=== PATIENT | female | born 1965 | race Caucasian/White ===

== ENCOUNTER 2020-05-18 10:47 | Emergency (ER) | payer OTHER, SELFPAY ==
[2020-05-18 10:56] VITALS: BP 149/86; PULSE 91; RESP 15; TEMP 37; O2SAT 98; BMI 22.4
--- NOTE | 2020-05-18 11:29 | W.ED.GENADLT ---
HPI - General Adult General: Chief complaint: General Medical Stated complaint: ACHES, CHILLS, DRY COUGH, H/A NAUSEA Time Seen by Provider: 05/18/20 11:06 History of Present Illness: HPI narrative: 55-year-old female who presents emergency room with complaint of generalized myalgias cough for the last couple of days she also had a mild headache she had some abdominal upset no vomiting or diarrhea. She has not had any known contacts no one else in her home is been sick so far. She had a lot of joint pain and myalgias where it initially seemed to begin prior to the cough. Onset (ago): hour(s) Severity: moderate Relieving factors: none Exacerbating factors: none Associated symptoms: Reports cough, fevers/chills, headache(s), malaise, nausea and weakness; Deny chest pain, confusion, diaphoresis, decreased appetite, dyspnea, rash, palpitations, seizures, short of breath, syncope or vomiting Treatments prior to arrival: none Review of Systems Const: Reports: malaise; Denies: diaphoresis ENMT: Denies: throat pain, ear or mastoid pain, nasal discharge or nasal congestion Card: Denies: chest pain, palpitations or syncope Resp: Denies: dyspnea GI: Reports: nausea; Denies: vomiting : Denies: flank pain, difficulty voiding, dysuria, urinary frequency or urinary urgency Skin/Breast: Denies: rash Neuro: Reports: headache(s); Denies: confusion PFS ED PFSH: Social History Smoking and tobacco status: never smoked Physical Exam Const: COMMON NORMALS: no acute distress GENERAL APPEARANCE: cooperative and comfortable ORIENTATION/CONSCIOUSNESS: Yes awake, Yes oriented to person, Yes oriented to place and Yes oriented to time HENMT: COMMON NORMALS: normocephalic, atraumatic and hearing grossly normal bilaterally HEAD & SCALP: normocephalic and atraumatic Eye: COMMON NORMALS: Equal, round and reactive pupils present, EOMs intact bilaterally, conjunctivae normal and no scleral icterus CONJUNCTIVA: Yes conjunctivae normal PUPIL: Yes Equal, round and reactive pupils present Neck/C-Spine: COMMON NORMALS: full ROM, no lymphadenopathy, supple and no JVD Lymph: LYMPHATIC: no lymphadenopathy noted and no lymphedema noted Resp: COMMON NORMALS: normal respiratory effort, No retractions, No use of accessory muscles and clear to auscultation bilaterally AUSCULTATION: clear to auscultation bilaterally Cardio: COMMON NORMALS: no JVD, regular rate, regular rhythm and No murmurs present (Cardio) RATE: regular rate RHYTHM: regular rhythm GI: COMMON NORMALS: Soft to palpation and No hepatosplenomegaly present AUSCULTATION: Yes normoactive bowel sounds PALPATION: Yes Soft to palpation, No Tenderness to palpation present (GI), No Guarding due to palpation present (GI) and Yes No hepatosplenomegaly present Extremity: COMMON NORMALS: normal to inspection, capillary refill normal, no clubbing, cyanosis or edema, no calf tenderness and no pedal edema Neuro: SENSORIUM/ORIENTATION: Yes oriented to person, Yes oriented to place and Yes oriented to time Skin: COMMON NORMALS: no rashes or lesions noted GENERAL SKIN EXAM: no rashes or lesions noted Course Vital Signs: Vital signs: Vital Signs Temperature 98.6 F 05/18/20 10:56 Pulse Rate 91 05/18/20 10:56 Respiratory Rate 15 05/18/20 10:56 Blood Pressure 149/86 05/18/20 10:56 Pulse Oximetry 98 05/18/20 10:56 MDM - General Adult MDM Narrative: Medical decision making narrative: Encouraged to maintain self quarantine. Also encouraged to follow-up with employee health as soon as she is able. Discharge Plan Discharge Patient Disposition: Home Clinical Impression: Suspected 2019-nCoV infection Condition: Stable Prescriptions: No Action Tylenol 325 mg Tablet 325 - 650 mg PO QID PRN (Reason: PAIN/FEVER) RF: 0 ibuprofen 200 mg Capsule 200 mg PO Q6H PRN (Reason: PAIN/FEVER) RF: 0 Nexium 40 mg Capsule,Delayed Release(Dr/Ec) 40 mg PO DAILY RF: 0 Discharge Orders: Discharge Order (Routine); Ordered 05/18/20 Ordered By: Aidan Ho Activity Restrictions/Additional Instructions: Your swab for COVID-19. Please maintain self quarantine until the results are back. Please contact employee health on Wednesday to advise them of your type and onset of symptoms and the testing that was done. Coding Level of Care Code ED Fashion Consultant Selling for Sandro Roca
[2020-05-18 11:36] VITALS: BP 118/70; PULSE 70; RESP 16; O2SAT 98
[2020-05-21 08:06] LABS: Coronavirus Lab Test PTC Positive
--- NOTE | 2020-05-21 12:44 | PC.NURSE ---
Patient called at this time and notified of COVID positive results.
== END 2020-05-18 11:37 | disposition home or self-care (01) ==
PROVIDERS: Emergency Provider Family Medicine
DX: U07.1 COVID-19 (principal)
CPT/HCPCS: 12345; 87635; 99281; 99282

== ENCOUNTER 2020-06-06 10:03 | Outpatient (CLI) | payer OTHER, SELFPAY ==
--- NOTE | 2020-06-06 10:10 | XR_ITS ---
WS: [id number] PROCEDURE: XR chest 2V* [id number] CLINICAL INFORMATION: cough/shortness of breath COMPARISON: June 09, 2010 FINDINGS: Heart: Normal cardiac silhouette. Lungs: Lungs are clear. No consolidation or pleural fluid. Mild chronic emphysematous changes. Bones: Normal visualized bony structures. Cholecystectomy clips. XR/XR chest 2V* [id number] IMPRESSION: Mild chronic emphysematous changes. No acute pulmonary infiltrates.
== END 2020-06-06 10:04 | disposition home or self-care (01) ==
LOC: RADWPI 10:08
PROVIDERS: PCP Nurse Practitioner Family; Visit Provider Family Medicine
DX: R05 Cough (principal); R06.02 Shortness of breath
CPT/HCPCS: 71046; 85025

== ENCOUNTER 2021-06-02 13:40 | Outpatient (CLI) | payer OTHER, SELFPAY ==
--- NOTE | 2021-06-02 13:49 | US_ITS ---
WS: [id number] DIAGNOSTIC BILATERAL DIGITAL MAMMOGRAM WITH CAD LEFT breast ultrasound, limited HISTORY: N64.4 - Mastodynia COMPARISON: 07/04/2014 TECHNIQUE: Bilateral craniocaudad, mediolateral oblique, and mediolateral views are submitted. Spot c ompression LEFT MLO Computer aided detection utilized. Breast composition: The breasts are heterogeneously dense, which may obscure small masses. No masses or distortion. No abnormality in the upper-outer quadrant of the LEFT breast in the area of pain. LEFT breast ultrasound, limited. Ultrasound is directed to the upper outer quadrant of the LEFT breast in the area of pain. No mass or soft tissue nodules are identified. There is a benign lymph node near the axillary tail. US/US breast LT limited* [id number] IMPRESSION: BI-RADS: 2-Benign FOLLOW UP: 1 Year Follow-up
--- NOTE | 2021-06-02 14:00 | MM_ITS ---
WS: [id number] DIAGNOSTIC BILATERAL DIGITAL MAMMOGRAM WITH CAD LEFT breast ultrasound, limited HISTORY: N64.4 - Mastodynia COMPARISON: 07/04/2014 TECHNIQUE: Bilateral craniocaudad, mediolateral oblique, and mediolateral views are submitted. Spot c ompression LEFT MLO Computer aided detection utilized. Breast composition: The breasts are heterogeneously dense, which may obscure small masses. No masses or distortion. No abnormality in the upper-outer quadrant of the LEFT breast in the area of pain. LEFT breast ultrasound, limited. Ultrasound is directed to the upper outer quadrant of the LEFT breast in the area of pain. No mass or soft tissue nodules are identified. There is a benign lymph node near the axillary tail. MM/[place] [id number] IMPRESSION: BI-RADS: 2-Benign FOLLOW UP: 1 Year Follow-up
== END 2021-06-02 13:41 | disposition home or self-care (01) ==
LOC: RADSHAW 13:44
PROVIDERS: Visit Provider Nurse Practitioner Women's Health
DX: N64.4 Mastodynia (principal)
CPT/HCPCS: 76642; 77066

== ENCOUNTER → 2021-06-17 14:30 | Outpatient (BNVA) | payer OTHER, SELFPAY | PROVIDERS: Visit Provider Obstetrics & Gynecology | DX: R32 Unspecified urinary incontinence (principal) | CPT/HCPCS: 87086 ==

== ENCOUNTER → 2021-09-12 11:31 | Outpatient (BNVA) | payer OTHER, SELFPAY | PROVIDERS: Visit Provider Obstetrics & Gynecology | DX: N81.3 Complete uterovaginal prolapse (principal) | CPT/HCPCS: 87635 ==

== ENCOUNTER 2021-09-17 13:29 | Observation (INO) | payer OTHER, SELFPAY ==
[2021-09-15 10:17] VITALS: BMI 22.4
[2021-09-15 10:57] LABS: OR HCG Qualitative Urine Negative (Negative)
--- NOTE | 2021-09-15 10:58 | P.ANESASSM_ITS ---
Pre-Anesthetic Assessment Pre-Anesthetic Assessment: Height/Weight: Height 1.65 m Weight 61.235 kg Proposed Procedure: Operation Date: 09/17/21 07:00 Proposed Procedures p Total Vaginal Hysterectomy 82011 22584 [id number] 90054 N81.3(Not Applicable) - Tito Walker MD s Salpingo-Oophorectomy (Vaginal)(Right) - Tito Walker MD s Anterior Repair(Not Applicable) - MD urvashi Browning Posterior Repair(Not Applicable) - Tito Walker MD s Sling(Not Applicable) - Tito Walker MD s Sacrospinous Ligament Suspension(Not Applicable) - Tito Walker MD Was Beta Lena taken within 24 hours: N/A Was Clonidine taken within 24 hours: N/A Social: Social History: No alcohol and No tobacco Exam: Pre-Anes Outpt Exam: alert, oriented x 3, clear to auscultation bilaterally and regular rate & rhythm Airway: Submandibular: WNL Cervical ROM: WNL MP: 2 Pulmonary: Pulmonary: SOB (Since COVID) CV/HEM: CV/HEM: None reported : Comments: Uterine Prolapse Hepatic: Hepatic: None reported GI: GI: GERD (Controlled with OTC meds) Metabolic: Metabolic: None reported Musc/skel: Musc/skel: None reported Neuropsych: Neuropsych: None reported Anesthetic Plan: ASA status: 2 Anesthesia: General PFS Anesthesia PFSH: Medical History No pertinent past medical history neghx: htn,dm,thyroid,dvt/pe PCP: None Third degree uterine prolapse Surgical History Hx laparoscopic cholecystectomy (~2018) Hx of appendectomy (~1987) Hx of unilateral salpingectomy (~1987) L side -- with oophorectomy; due to endometriosis. Performed in [place] Family History Brother Diabetes Father Hypertension Sister Hypercholesteremia x2 Thyroid disease x2 Denies family history of Colon cancer Ovarian cancer Heart disease Breast cancer Uterine cancer Stroke Data Anesthesia Other Labs: Laboratory Results - last 48 hr 09/15/21 10:34 Urine HCG, Qual Negative Cardiac Studies: No Data to Display
[2021-09-15 12:37] LABS: Basophils % 0.6 %; Eosinophils # 0.1 10^3/uL (0.0-0.8); Eosinophils % 1.6 %; Hematocrit 48.9 % (37.0-47.0); Hemoglobin 15.3 g/dL (11.5-15.3); Lymphocytes # 1.8 10^3/uL (0.8-4.8); Lymphocytes % 28.4 %; Mean Corpuscular HGB Conc 31.3 g/dL (30.0-36.0); Mean Corpuscular Hemoglobin 28.2 pg (28.0-34.0); Mean Corpuscular Volume 90.2 fl (81-99); Mean Platelet Volume 12.3 fL (7.4-10.4); Monocytes # 0.3 10^3/uL (0.2-0.9); Monocytes % 4.8 %; Neutrophils # 4.14 10^3/uL (1.8-7.7); Neutrophils % 64.1 %; Nucleated Red Blood Cells % 0 %; Platelet Count 217 10^3/cmm (130-400); Red Blood Count 5.42 10^6/uL (4.1-5.3); Red Cell Distribution Width 13.2 % (12.1-15.1); White Blood Count 6.5 10^3/uL (4.0-10.0)
[2021-09-15 12:52] LABS: Alanine Aminotransferase 24 U/L (0-33); Albumin Level 4.8 g/dL (3.5-5.2); Alkaline Phosphatase 129 IU/L (35-105); Aspartate Amino Transferase 20 U/L (0-32); Blood Urea Nitrogen 13 mg/dL (6-20); Calcium 9.6 mg/dL (8.5-10.5); Carbon Dioxide 25 mmol/L (22-29); Chloride 100 mmol/L (98-107); Creatinine Clr Calc Pharmacy 115.0239; Globulin 2.7 g/dL (1.3-4.6); Glomerular Filtration Rate 127.2 mL/min (90-130); Glucose 76 mg/dL (65-115); Osmolality Calculated 287 mOsm/kg (285-295); Sodium 139 mmol/L (136-145); Total Bilirubin 0.4 mg/dL (0.15-1.2); Total Protein 7.5 g/dL (6.6-8.7)
[2021-09-15 19:18] LABS: Add Urine Microscopic? NO; Charge for UA Resulting for Rev
[2021-09-15 19:28] LABS: Urine Appearance Clear (CLEAR); Urine Color Yellow (Yellow); pH Urine 5 (5-7)
[2021-09-15 19:29] LABS: Bilirubin Urine Neg (Negative); Blood Urine Neg (Negative); Glucose Urine UA Norm (Normal); Ketones Urine Negative (Negative); Leukocyte Esterase Urine Negative (Negative); Nitrate Urine Negative (Negative); Protein Urine Neg (Negative); Specific Gravity, Urine 1.015 (1.005-1.030); Urobilinogen Urine Norm (Negative)
[2021-09-17] VITALS (28 sets, daily range): BP systolic 97–159; BP diastolic 61–85; PULSE 60–101; RESP 12–23; TEMP 36.2–37.1; O2SAT 92–100
[2021-09-17] MEDS: scopolamine 1.5 Patch 1 PATCH TRANSDERMA (06:15)
[2021-09-17] MEDS: sodium chloride 0.9% 500 ML IV (06:17)
--- NOTE | 2021-09-17 06:28 | P.ANESUD_ITS ---
Pre-Anesthetic Update Pre-Anesthetic Assessment: Date of Surgery/Procedure: 09/17/21 Preop Terrie gnosis: Third-degree uterine prolapse Proposed Procedure: Operation Date: 09/17/21 07:00 Proposed Procedures p Total Vaginal Hysterectomy 03370 44991 [id number] N81.3(Not Applicable) - Tito Walker MD s Salpingo-Oophorectomy (Vaginal)(Right) - MD urvashi Browning Anterior Repair(Not Applicable) - MD urvashi Browning Posterior Repair(Not Applicable) - MD urvashi Browning Sling(Not Applicable) - MD urvashi Browning Sacrospinous Ligament Suspension(Not Applicable) - Tito Walker MD Any changes to Pre-Anesthetic Assessment?: No Last Intake: Intake Last Liquid Date 09/16/21 Last Liquid Time 23:40 Last Solid Date 09/16/21 Last Solid Time 20:00 Labs Last 48hrs: Laboratory Results - last 48 hr 09/15/21 09/15/21 09/15/21 10:34 10:34 10:52 WBC 6.5 RBC 5.42 H Hgb 15.3 Hct 48.9 H MCV 90.2 MCH 28.2 MCHC 31.3 RDW 13.2 Plt Count 217 MPV 12.3 H Neut % (Auto) 64.1 Lymph % (Auto) 28.4 [place] % (Auto) 4.8 Eos % (Auto) 1.6 Baso % (Auto) 0.6 Neut # (Auto) 4.14 Lymph # (Auto) 1.8 [place] # (Auto) 0.3 Eos # (Auto) 0.1 Baso # (Auto) 0.0 Nucleated RBC % (a uto) 0 Nucleated RBCs # 0.0 Sodium Potassium Chloride Carbon Dioxide Anion Gap BUN Creatinine GFR Calculation Glucose Calculated Osmolal ity Calcium Total Bilirubin AST ALT Alkaline Phosphata se Total Protein Albumin Globulin Urine Color Yellow Urine Appearance Clear Urine pH 5 Ur Specific Gravit y 1.015 Urine Protein Neg Urine Glucose (UA) Norm Urine Ketones Negative Urine Blood Neg Urine Nitrate Negative Urine Bilirubin Neg Urine Urobilinogen Norm Ur Leukocyte Candie ase Negative Urine HCG, Qual Negative Blood Type Rho(D) Type Antibody Screen 09/15/21 09/15/21 10:52 10:52 WBC RBC Hgb Hct MCV MCH MCHC RDW Plt Count MPV Neut % (Auto) Lymph % (Auto) [place] % (Auto) Eos % (Auto) Baso % (Auto) Neut # (Auto) Lymph # (Auto) [place] # (Auto) Eos # (Auto) Baso # (Auto) Nucleated RBC % (a uto) Nucleated RBCs # Sodium 139 Potassium 4.0 Chloride 100 Carbon Dioxide 25 Anion Gap 18.0 BUN 13 Creatinine 0.5 GFR Calculation 127.2 Glucose 76 Calculated Osmolal ity 287 Calcium 9.6 Total Bilirubin 0.4 AST 20 ALT 24 Alkaline Phosphata se 129 H Total Protein 7.5 Albumin 4.8 Globulin 2.7 Urine Color Urine Appearance Urine pH Ur Specific Gravit y Urine Protein Urine Glucose (UA) Urine Ketones Urine Blood Urine Nitrate Urine Bilirubin Urine Urobilinogen Ur Leukocyte Candie ase Urine HCG, Qual Blood Type O Positive Rho(D) Type Positive Antibody Screen Negative Vitals: Temperature 97.9 F 09/17/21 06:07 Temperature Source Temporal Artery S can 09/17/21 06:07 Pulse Rate 86 09/17/21 06:07 Respiratory Rate 16 09/17/21 06:07 Blood Pressure 132/85 09/17/21 06:07 Blood Pressure Vanessa n 100 09/17/21 06:07 Pulse Oximetry 98 09/17/21 06:07 Oxygen Delivery Me thod 09/17/21 06:07 Exam: Pre-Anes Outpt Exam: alert, oriented x 3, clear to auscultation bilaterally and regular rate & rhythm Cardiac Studies: No Data to Display
[2021-09-17] MEDS: sodium chloride 0.9% 1,000 ML 30 ML IV (06:51)
--- NOTE | 2021-09-17 06:57 | W.PM.OPSUD ---
Surgery/Procedure H&P Update DATE OF PROCEDURE: September 17, 2021 DATE H&P PERFORMED: 09/12/20 H&P UPDATE INFORMATION: I have reviewed H&P completed within last 30 days, I have examined patient prior to procedure and No changes to prior documentation PREOP DIAGNOSIS: Third-degree uterine prolapse PLANNED PROCEDURE: Operation Date: 09/17/21 07:00 Proposed Procedures p Total Vaginal Hysterectomy 77970 74545 [id number] N81.3(Not Applicable) - Tito Walker MD s Salpingo-Oophorectomy (Vaginal)(Right) - Tito Walker MD s Anterior Repair(Not Applicable) - MD urvashi Browning Posterior Repair(Not Applicable) - Tito Walker MD s Sling(Not Applicable) - Tito Walker MD s Sacrospinous Ligament Suspension(Not Applicable) - Tito Walker MD
[2021-09-17] MEDS: ceFOXitin 2,000 MG in sodium chloride 0.9% (plus) 50 ML 100 MG IV (07:00)
[2021-09-17] MEDS: estrogens Conjugated Cream 30 gm 1 APPLIC VAGINAL (09:08)
--- NOTE | 2021-09-17 09:51 | P.OP_ITS ---
Operative Report Date of procedure: September 17, 2021 Pre-op Diagnosis: Third-degree uterine prolapse Post-op diagnosis: same Post-op Diagnosis: uterine fibroid Post-op Findings: Uterine fibroid Procedure Done: Total vaginal hysterectomy with right salpingo-oophorectomy. Anterior colporrhaphy augmented with allograft. Single incision mid urethral sling. Posterior colporrhaphy. Sacrospinous fixation. Cystoscopy. Implants: Coloplast artist sling. Anchorsure suspension. Specimens removed/disposition: Uterus Right fallopian tube and ovary. Pathology: Uterus with the right fallopian tube and ovary Surgeon: Tito Walker MD Anesthesia: General Estimated blood loss (mL): 300 IV fluids (mL): 1,000 Urine output (mL): 200 Complications: None Condition: stable Disposition: PACU Procedure: After informed consent, the patient was taken to the operating room where general anesthesia was administered. She was placed in the dorsal lithotomy position and prepped and draped in sterile fashion. Pre-Procedure Time-Out verifying the correct patient identity, correct procedure verified with consent, correct site and side, correct patient position, availability of correct implants and any special equipment or requirements was performed and acknowledge by the OR team. A vaginal Bookwalter retractor was placed and used to visualize the cervix. The cervix was grasped across the anterior lip with a single-toothed tenaculum and circumferentially infiltrated with 1% Xylocaine with epinephrine at this time. The cervix was circumferentially excised with the scalpel. The vaginal mucosa was dissected superiorly with sharp dissection. The anterior peritoneal reflection was identified, and it was entered with Metzenbaum scissors. A posterior colpotomy was made through the cul-de-sac space. The posterior peritoneum was identified in similar fashion and Metzenbaum scissors were used to enter the cul-de-sac. At this time, a lap sponge was place in the culdesac and, the left and right uterosacral ligaments were isolated and ligated with 0 Vicryl. The Enseal device was then used in a serial fashion up through the cardinal ligaments bilaterally. Finally, the uterine arteries were cross-clamped, cut, and ligated with the Enseal device. Enseal device was then used up through the broad ligaments sup eriorly and finally the uterus was rotated posteriorly. The left and right tubes were then cross-clamped and ligated with Enseal device. The uterus was excised and submitted for pathologic evaluation. No other abnormalities were noted in the pelvic cavity. Tag sutures had been left on the remnants of the uterosacral ligaments. A Driss forces was used grasp the right ovary and fallopian tube, with the Enseal device the right infudibulopelvic ligament was camped sealed and cut to excise the the right ovary and fallopian tube with out complications. The right uterosacral ligament tag was placed under traction to identify the remnants of the right uterosacral ligament. An #0 vicryl suture was placed to the proximal right uterosacral ligament and sutured to the anterior and posterior pelvic fascia beneath the vaginal cuff on the right side. Identical process was performed on the left, although some difficulty was encountered in identifying and actually suturing through the attenuated left uterosacral ligament. Both these sutures were tied to elevate the vaginal cuff. The remaining vaginal cuff mucosa and anterior and posterior fascia were then closed. At this time, instruments were removed from the patient's abdominopelvic cavity. Vaginal cuff closure and peritoneum were incorporated into one layer with 0 Vicryl suture in a continuous running interlocking fashion. Hemostasis was noted to be achieved. The anterior vaginal mucosa beneath the midurethra was infiltrated with 0.5% Marcaine with epinephrine. A vertical midline incision was made beneath the midurethra, nearly 1.5 cm length. Careful submucosal dissection was performed bilaterally up to the interior portion of the inferior pubic ramus. The insertion of adductor longus tendon on the patient?s pubic ramus was identified as reference land katharine. Palpated the notch along the internal edge of ischiopubic ramus where the adductor longus tendon and the inferior pubic ramus meet. The needle of the SIS inserted aiming at the location of this notch. One of the integrated self-fixating tips place onto the needle by sliding it over the end of the needle. The needle/sling assembly was inserted toward the loca tion of identified reference notch making sure that the flat of the handle is perpendicular to the desired path. The needle was tracked along the posterior surface of the ischiopubic ramus until the midline katharine on the mesh is approximately at the midline position under the urethra. The needle was removed and the same was repeated on the contralateral side until the appropriate sling tension under the urethra was achieved ensuring that the mesh lays flat. The needle was removed and vaginal incision was closed in a running interlocking fashion with 2-0 Vicryl. Then an anterior colporrhaphy was performed. The vaginal mucosa was then injected in the midline with normal saline. The vaginal mucosa was then injected in the midline with normal saline. The vaginal mucosa was scored in the midline with the Bovie approximately 1 cm medial to the urethral meatus to 1 cm distal to the vaginal cuff. This vaginal mucosa was then undermined and then incised in the midline with the Metzenbaum scissors. The lateral aspects of the vaginal mucosa were then grasped with the Allis clamps and the vaginal mucosa was then dissected off the underlying fascia with the Metzenbaum scissors. Again, there was noted to be quite a bit of oozing at the incision, which was controlled with cautery. After adequate dissection was performed, bilaterally. The Cloplast allograft was modified at time of application to fit spacea, 3 x 3 cm piece . Coloplast allograft placed in front of cystocele ready to be implanted with the Basement Membrane facing the vagina mucosa. Suture is placed at distal end of graft and placed towards vaginal cuff. Final suture is placed on proximal portion of the graft to complete the placement overlying the bladder. Then Interrupted vertical mattress sutures of 0 Vicryl were used to elevate the cystocele superiorly. The excessive vaginal mucosa was then trimmed with the Metzenbaum scissors and the vaginal mucosa was then reapproximated in the running interlocking fashion with 2-0 Vicryl. The posterior vaginal mucosa is opened in the routine fashion as in a Posterior Repair. A finger is inserted through the incision in the posterior vaginal mucosa, dissecting out the rectovaginal space (RVS). The right rectal pillar (RRP) is identified. The rectal pillar can be bluntly perforated either with the finger and with the tip of a long Najma clamp. A thing mailable retractor is used for exposing the rectovaginal space in order to enter the pararectal space with retraction of the cardinal ligament, vagina, and rectum. Displacing the rectum to the left and the cardinal ligament and ureter anteriorly. A sponge dissector is used to bluntly dissect the sacrospinous ligament removing areolar tissue. The ischial spine was palpated directly, and a area approximately 2 cm medial to the spine was selected for insertion of the Anchorsure transvaginal sacrospinous fixation system. One end of the suture of Anchoresure system inserted through the sacrospinous ligament is placed through the muscular layer of the vagina. In a similar manner, the second suture is placed. The opposite end of the suture in the sacrospinous ligament is left free and held on a small hemostat. Then traction on this suture will draw the vaginal vault directly to the ligament, where a square knot affixes it to the sacrospinous ligament. After the eriberto stich is tied the second safety stich is tied. Then the colporrhaphy/vaginal repair is carried out in routine fashion. Then posterior repair was performed next. An incision was made across the introitus. Metzenbaum scissors were used to tunnel beneath posterior vaginal mucosa until the apex of the rectocele bulge was reached. At this point, the rectum was from the posterior vaginal mucosa using sharp and blunt dissection, and the rectal bulge imbricated in the midline with interrupted sutures of 2-0 vicryl suture. Levator ani muscles on either side were approximated in the midline with interrupted 0 Vicryl sutures. Excess posterior vaginal mucosa was excised, and the vaginal episiotomy was repaired by approximating the posterior vaginal mucosa with a suture of Vicryl #3-0. IV Indigo carmine was given. Then the Nolan catheter was removed and cystoscope was inserted. Complete evaluation of the bladder mucosa was performed noting no lacerations, dimpling, tears, bleeding of the mucosa or muscular layers. Both ureteral orifices were identified. Prompt excretion of blue urine from both ureteral orifices was noted. Cystoscope was withdrawn. Nolan catheter was then placed yielding clear garo urine. A vaginal packing with Premarin cream was placed to provide support during the healing process. The patient tolerated the procedure well and was taken to the recovery room in a stable condition. Sponge and needle c ounts were correct x3. This documentation was created by [employer] joiners supervisor software (known for inherent joiners supervisor error). Every effort was made to assure accuracy of joiners supervisor. Any obvious errors or omissions should be clarified with the author of the document.
--- NOTE | 2021-09-17 10:02 | P.PCN_ITS ---
PACU note PACU note: VSS, Good respiratory effort, report to PAYROLL MACHINE OPERATOR Post-Anesthesia Exam: awake
--- NOTE | 2021-09-17 10:02 | PM.PACU ---
PACU note PACU note: VSS, Good respiratory effort, report to MARINE FITTER Post-Anesthesia Exam: awake
[2021-09-17] MEDS: fentaNYL 50 mcg/mL INJ 2mL IVP ×2 (10:35→11:28)
[2021-09-17] MEDS: HYDROmorphone 1 mg/mL INJ 1 mL 0.5 MG IVP (12:45)
[2021-09-17] MEDS: ondansetron 2 mg/ML SDV 2 mL 4 MG IVP (13:30)
--- NOTE | 2021-09-17 13:54 | ANE.PACU2 ---
Inpatient post-anesthesia follow up: Airway intact: Yes Vital signs: Temperature 97.2 F Pulse Rate 68 Respiratory Rate 18 Blood Pressure 103/65 Pulse Oximetry 98 Oxygen Delivery Me thod Room Air Oxygen Flow Rate 6 Fraction of Inspir ed Oxygen Hydration adequate: Yes Nausea and vomiting: No Pain level: 2 Mental status: Baseline
[2021-09-17] MEDS: dextrose 5%-lactated ringers 1,000 ML 125 ML IV (16:26)
[2021-09-17] MEDS: ketorolac 30 mg/mL INJ IVP ×2 (16:26→21:33)
[2021-09-17] MEDS: HYDROcodone-acetaminophen 5-325 mg Tablet PO ×2 (17:52→23:59)
[2021-09-17] MEDS: docusate sodium 100 mg Capsule PO (17:52)
[2021-09-17] MEDS: acetaminophen 325 mg Tablet 650 MG PO (20:14)
[2021-09-18] VITALS: BP 114/59; PULSE 79; RESP 18; TEMP 36.6; O2SAT 100
[2021-09-18 04:00] VITALS: BP 92/55; PULSE 87; RESP 16; TEMP 36.7; O2SAT 98
[2021-09-18] MEDS: ketorolac 30 mg/mL INJ IVP (04:52)
[2021-09-18 07:41] VITALS: BP 99/60; PULSE 71; RESP 18; TEMP 37.1; O2SAT 98
[2021-09-18] MEDS: docusate sodium 100 mg Capsule PO (09:09)
[2021-09-18] MEDS: dextrose 5%-lactated ringers 1,000 ML 125 ML IV ×2 (09:09)
[2021-09-18 09:28] LABS: Hematocrit 34.8 % (37.0-47.0); Hemoglobin 10.6 g/dL (11.5-15.3); Mean Corpuscular HGB Conc 30.5 g/dL (30.0-36.0); Mean Corpuscular Volume 91.8 fl (81-99); Mean Platelet Volume 12.2 fL (7.4-10.4); Platelet Count 158 10^3/cmm (130-400); Red Blood Count 3.79 10^6/uL (4.1-5.3); Red Cell Distribution Width 13.6 % (12.1-15.1); White Blood Count 10.6 10^3/uL (4.0-10.0)
--- NOTE | 2021-09-18 10:18 | PC.CHAP ---
Pastoral Care Encounter/Spiritual Assessment Type of Contact [] Declined avionics electronics technician visit [] Patient/Family/Request visit [] Outpatient visit [] Follow-up visit [] Physician referral [] Code/Alert [] Routine visit [] Staff referral [] Actively dying [] Patient sleeping [] Family support [] [] Out of room [] Palliative care [] [] Receiving care in room [] Pre-surgical visit [] Trauma [] Long length of stay [] ICU visit [x] Other: Isolation Relational/Emotional Strength [] Patient feels connected with others/family/visitors/staff [] Distress [] Loneliness/isolation [] Abandonment Spirituality of Patient [] Person of Marianne [] Attends Sabianism of their Marianne [] Believes in Prayer [] Reads Bible or Tenriism materials [] There are Spiritual issues to be addressed Igniter Assembler Interventions [] Prayer [] Active listening [] Non-anxious presence [] Spiritual/emotional support [] Crisis/trauma care [] Spiritual counseling [] Bereavement support [] Provided bereavement packet [] Provided Bible/devotional materials [] Provided toy/stuffed animal, coloring book to patient or family member [] Provided Communion [] Anointing/[place] [] Salvation [] Completed spiritual assessment [] Other: Impact on Illness or Injury [] Angry [] Fearful [] Anxious [] Often cries [] Exhaustion [] Unable to work [] Unable to attend voodoo [] Unable to walk/stand [] Unable to read [] Unable to drive [] Unable to eat/drink [] Unable to sleep [] Unable to be with family [] Patient intubated [] Other: Summary Isolation Time spent with patient 5 mins
--- NOTE | 2021-09-18 10:23 | P.DS_ITS ---
Discharge Providers EQUIPMENT MECHANIC SPECIALIST Date of Admission: 09/17/21 13:29 Date of Discharge: 09/18/21 Attending Provider at Admission: Tito Walker MD Attending Provider at Discharge: Tito Walker MD Reason for Visit Reason for Visit: [facility] Hospital Course Hospital Course Mrs. Bradley 56-year-old female with a 10 degree uterine prolapse was admitted for planned total vaginal hysterectomy with right salpingo-oophorectomy, anterior colporrhaphy augmented with allograft, single incision mid urethral sling, posterior colporrhaphy and sacrospinous fixation. The procedures were performed without complication. Overnight observation uneventful. She is afebrile and hemodynamically stable postoperative day 1, tolerating diet well, ambulating without difficulty. Pain under control, refers minor lower back pain. Physical Exam Narrative: EXAM NARRATIVE: GA: Alert and oriented ?3. HEENT: WNL. Heart: Regular rate and rhythm. Lungs: Clear to auscultation bilaterally. Abdomen: Bowel sounds present, nontender BAR WAITER/WAITRESS: Spotting. Extremities: No edema, no cyanosis, no calves pain. Urinary Catheter Management^: Nolan: Cath Placed During This Visit: yes, but has since been removed by the nurse Reason for Continuing Indwelling Catheter: Decision to DC Catheter Urinary Catheter Date of Insertion: 09/17/21 Urinary Catheter Time of Insertion: 07:33 Date Urinary Catheter Removed: 09/18/21 Time Urinary Catheter Discontinued: 10:00 History History History 6 Term 4 Miscarriages/Ectopic 2 0 Living Children 4 Discharge Data Data Completed and Pending: Pending at discharge Category Date Time Status Pathology: Surgic al [PTH] Routine Pth 09/17/21 10:00 Received Labs from last 24 hours 09/18/21 08:56 WBC 10.6 H RBC 3.79 L Hgb 10.6 L Hct 34.8 L MCV 91.8 MCH 28.0 MCHC 30.5 RDW 13.6 Plt Count 158 MPV 12.2 H Vitals: Last Vital Signs Temp 98.8 F 09/18/21 07:41 Pulse 71 09/18/21 07:41 Resp 18 09/18/21 07:41 BP 99/60 09/18/21 07:41 Pulse Ox 98 09/18/21 07:41 Discharge Plan Discharge Patient Disposition: Home Condition: Stable Prescriptions: New acetaminophen 325 mg capsule 325 mg PO Q4H PRN (Reason: fever or pain) Qty: 60 RF: 0 ibuprofen 800 mg tablet 800 mg PO TID PRN (Reason: pain) Qty: 60 RF: 0 hydrocodone-acetaminophen 5-325 mg tablet 1 tab PO Q4H PRN (Reason: pain) Qty: 30 RF: 0 docusate sodium [Colace] 100 mg capsule 100 mg PO BID Qty: 60 RF: 0 Continued aspirin 81 mg tablet,delayed release (DR/EC) 81 mg PO DAILY RF: 0 omega-3 fatty acids 500 mg capsule 500 mg PO DAILY RF: 0 multivitamin Tablet 1 tab PO DAILY RF: 0 albuterol sulfate 90 mcg/actuation HFA aerosol inhaler 2 inh INHALATION QID PRN (Reason: Shortness Of Breath) RF: 0 vitamin E 200 unit capsule 200 unit PO DAILY RF: 0 acetaminophen [Tylenol] 325 mg Tablet 325 - 650 mg PO QID PRN (Reason: PAIN/FEVER) RF: 0 Nexium 40 mg capsule,delayed release(DR/EC) 40 mg PO DAILY PRN (Reason: Acid Reflux) RF: 0 Discharge Orders: Discharge Order (Routine); Ordered 09/18/21 Ordered By: Tito Walker Referrals: Tito Walker MD [Physician] - 2 weeks Discharge Diet: Soft Mechanical Discharge Activity: Limit activity as instructed Patient Instructions: Bladder Sling (GEN), Vaginal Hysterectomy (GEN), Anterior Vaginal Repair (GEN), Posterior Vaginal Repair (GEN), Opioid Safety Activity Restrictions/Additional Instructions: 1. Please call [facility] on next working day to make your post-operative appointment in 2 weeks. 2. Please stay home until you come back to the clinic on first post-operative check up. 3. Please follow instructions on your medications CAREFULLY. 4. If you have abdominal incision, do not cover it unless dressing is necessary because of drainage. OK to shower, but avoid bath. Leave steri-strips until they fall off. If they are still on one week after surgery, you may remove them. 5. If you had vaginal surgery or vaginal repair, Dr. Walker may instruct you to take SITZ bath. 6. Yellow, blood tinged odorous vaginal discharge is usually normal after h ysterectomy or vaginal surgeries. 7. No sexual intercourse, tampons, or douches until you are completely released from the post-operative care. 8. Avoid constipation by eating right and maybe using some Metamucil or Milk of Magnesia. 9. All prescription refills are given during the working hours. Please do no wait till it runs out. Call the clinic at [phone] before your medication runs out. The clinic will get in touch with your doctor to prescribe medications if necessary. 10. Please remain within 40 mile radius from our hospital because emergencies do happen now and then during the post-operative period. 11. If you have stairs at home, take one step at a time slowly and minimize the number of trips. It helps to stay in one floor for the next few days. No lifting except what you can lift by one hand until you are released from the post-operative care. 12. Driving is discouraged until you are well healed. It may be 3-4 weeks before you feel strong enough to drive. You should be able to turn and look through the rear window without pain and you should be able to push the brake pedal very hard without pain before you drive. No fast rules, but SAFETY should be your primary concern. DO NOT drive if you are on sedating medications such as narcotics. 13. Call the clinic (during working hours) to make urgent appointment or go to the Emergency room, if any of the following occurs: i. Vaginal bleeding becomes heavy, more than a period. ii. Incision becomes red and sore, or drains pus. iii. Your temperature is over 100.4 or you have chill. iv. IV site becomes red and swollen (a little ``knot?? is usually OK) v. Persistent nausea and vomiting vi. Persistent constipation or diarrhea vii. Rash or allergic reaction to medications. Discharge Attestations EQUIPMENT MECHANIC SPECIALIST Time Spent in Discharge Care*: greater than 30 min Coding Level of Care Code Acute Venereal Disease Control Head for Sandro Roca
--- NOTE | 2021-09-18 12:06 | PC.NURSE ---
patient voided 200. Post void residual was 126. Dr. Walker notified, and said patient is okay for discharge. Patient verbalized understanding of discharge instructions, home medications, and follow up appointments.
[2021-09-18 12:08] VITALS: BP 99/60; PULSE 71; RESP 18; TEMP 37.1; O2SAT 98
== END 2021-09-18 11:46 | disposition home or self-care (01) ==
LOC: MEDSURG 13:30
PROVIDERS: Admitting Provider Obstetrics & Gynecology; Visit Provider Obstetrics & Gynecology
PROC: (CPT 57260; principal; 2021-09-17 07:00)
PROC: (CPT 58720; 2021-09-17 07:00)
PROC: 0JQC0ZZ Repair Pelvic Region Subcutaneous Tissue and Fascia, Open Approach (ICD-10-PCS; CPT 57240; 2021-09-17 07:00)
PROC: (CPT 57250; 2021-09-17 07:00)
PROC: (CPT 57288; 2021-09-17 07:00)
PROC: (CPT 57282; 2021-09-17 07:00)
PROC: 0TJB8ZZ Inspection of Bladder, Via Natural or Artificial Opening Endoscopic (ICD-10-PCS; CPT 52000; 2021-09-17 07:00)
DX: N81.3 Complete uterovaginal prolapse (principal); D25.9 Leiomyoma of uterus, unspecified; Z86.16 Personal history of COVID-19; Z79.82 Long term (current) use of aspirin; Z82.49 Family history of ischemic heart disease and other diseases of the circulatory system; Z83.3 Family history of diabetes mellitus
CPT/HCPCS: 57260; 57282; 57288; 58291; 36415; 80053; 81003; 81025; 84703; 85025; 85027; 86850; 86900; 88305; 96365; C1713; C1762; G0378; J0694; J1100; J1170; J1885; J2405; J2704; J2710; J3010; J3490; J7030; J7040

== ENCOUNTER 2023-07-21 15:17 | Outpatient (CLI) | payer OTHER, SELFPAY ==
--- NOTE | 2023-07-21 15:23 | MM_ITS ---
WS: [id number] BILATERAL 3D TOMOSYNTHESIS DIGITAL SCREENING MAMMOGRAPHY WITH CAD CLINICAL INFORMATION: SCREEN HISTORY: Screening mammogram. No current complaints. COMPARISON: 2020 TECHNIQUE: Bilateral CC and MLO views. FINDINGS: The breasts are composed of heterogeneous fibroglandular density tissue, which can limit the detectio n of small underlying mass lesions. No suspicious mass, asymmetry, calcifications, or architectural d istortion. No evidence of malignancy. A few incidental punctate calcifications LEFT breast. IMPRESSION: MM/[place] [id number] BI-RADS: 2-Benign FOLLOW UP: 1 Year Follow-up Recommend return to annual screening mammography.
== END 2023-07-21 15:18 | disposition home or self-care (01) ==
PROVIDERS: PCP Nurse Practitioner; Visit Provider Nurse Practitioner Family
DX: Z12.31 Encounter for screening mammogram for malignant neoplasm of breast (principal)
CPT/HCPCS: 77063; 77067

== ENCOUNTER → 2023-11-16 09:15 | Outpatient (BNVA) | payer SELFPAY | PROVIDERS: PCP Nurse Practitioner; Visit Provider Dermatology | DX: Z01.89 Encounter for other specified special examinations (principal) ==

== ENCOUNTER → 2023-12-27 08:41 | Outpatient (BNVA) | payer OTHER, SELFPAY | PROVIDERS: PCP Nurse Practitioner; Visit Provider Nurse Practitioner Family | DX: M16.12 Unilateral primary osteoarthritis, left hip (principal) | CPT/HCPCS: 73502 ==

== ENCOUNTER → 2025-07-10 09:25 | Outpatient (BNVA) | payer OTHER, SELFPAY | PROVIDERS: PCP Nurse Practitioner Family; Visit Provider Nurse Practitioner Family | DX: R30.0 Dysuria (principal) | CPT/HCPCS: 81000 ==

== ENCOUNTER 2025-08-21 15:34 | Emergency (ER) | payer OTHER, SELFPAY ==
[2025-08-21 16:17] VITALS: BP 131/72; PULSE 81; RESP 16; TEMP 36.8; O2SAT 97; BMI 21.9
--- NOTE | 2025-08-21 16:35 | XRR_ITS ---
PROCEDURE INFORMATION: Exam: XR Left Ribs Exam date and time: 08/21/2025 4:47 PM Age: 60 years old Clinical indication: Chest wall pain; Left; Additional info: Left lower anterior rib pain. TECHNIQUE: Imaging protocol: Radiologic exam of the left ribs. Views: 2 views. COMPARISON: CR XR chest 2V* [id number] 06/06/2020 10:16 AM FINDINGS: Bones/joints: Normal. Soft tissues: Normal. XR/XR ribs LT 2V* [id number] IMPRESSION: No acute findings.
--- NOTE | 2025-08-21 16:35 | ED_ITS ---
HPI - Trauma General: Chief Complaint: Trauma Stated Complaint: L side rib pain Time Seen by Provider: 08/21/25 16:32 History of Present Illness: 60-year-old female with a history of hyp erlipidemia, GERD who presents to the emergency room with left lower rib pain. 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 No shortness of breath. No fevers. No cough. She has some pain with deep breathing and palpation. Related Data Home Medications ?Medication ?Instructions ?Recorded ?Confirmed multivitamin 1 tab PO DAILY 05/20/2112/29 Lactobacillus acidophilus 10 mg PO DAILY 07/07/2312/29 (Acidophilus capsule) magnesium glycinate 325 mg PO DAILY 07/07/2312/29 Previous Rx's ?Medication ?Instructions ?Recorded cholecalciferol (vitamin D3) 1,250 50,000 unit PO TIFFANIE Y #12 caps 12/27/23 mcg (50,000 unit) capsule methylprednisolone 4 mg tablets in See Rx Instructions PO PER PKG DIR 12/27/23 a dose pack (Medrol ([place])) #21 ea albuterol sulfate 90 mcg/actuation 1 inh inhalation Q6 H PRN shortness 07/10/25 aerosol inhaler (ProAir HFA) of breath or wheezing 30 days #8.5 grams cephalexin 500 mg capsule 500 mg PO TID 7 days #21 cap s 07/10/25 pantoprazole 40 mg tablet,delayed See Rx Instructions .Route 07/10/25 release .COMPLEX #90 tabs Allergies Allergy/AdvReac Type Severity Reaction Status Date / Time Sulfa (Sulfonamide Allergy hives, Verified 08/21/25 16:25 Antibiotics) swelling Review of Systems Narrative: Constitutional symptoms: Negative except as documented in HPI. Skin symptoms: Negative except as documented in HPI. Eye symptoms: Negative except as documented in HPI. ENMT symptoms: Negative except as documented in HPI. Respiratory symptoms: Negative except as documented in HPI. Cardiovascular symptoms: Negative except as documented in HPI. Gastrointestinal symptoms: Negative except as documented in HPI. Genitourinary symptoms: Negative except as documented in HPI. Musculoskeletal symptoms: Negative except as documented in HPI. Neurologic symptoms: Negative except as documented in HPI. Psychiatric symptoms: Negative except as documented in HPI. Endocrine symptoms: Negative except as documented in HPI. PFS ED PFSH: Medical History (Updated 08/21/25 @ 17:18 by Cynthia Mas MD) Mixed hyperlipidemia Shortness of breath Vitamin D deficiency Arthritis of left hip GERD (gastroesophageal reflux disease) Aftercare following surgery of the genitourinary system Third degree uterine prolapse No pertinent past medical history neghx: htn,dm,thyroid,dvt/pe PCP: None Surgical History Hx of unilateral salpingectomy (~1987) L side -- with oophorectomy; due to endometriosis. 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 Physical Exam Narrative: EXAM NARRATIVE: General: Alert, no acute distress. Skin: Warm, dry. Head: Normocephalic, atraumatic. Neck: Supple, trachea midline. Eye: Extraocular movements are intact. Ears, nose, mouth and throat: mucosa moist. Cardiovascular: Regular, Normal peripheral perfusion. Respiratory: Lungs are clear to auscultation, respirations are non-labored, breath sounds are equal, Symmetrical chest wall expansion. Some tenderness left lower anterior ribs. No deformities or obvious focal areas. Gastrointestinal: Soft, Nontender, Non distended Musculoskeletal: Normal ROM, no deformity. Neurological: Alert and oriented, No focal neurological deficit observed. Psychiatric: Cooperative, appropriate mood & affect. Course Vital Signs: Vital signs: Vital Signs Temperature 98.2 F 08/21/25 16:17 Pulse Rate 90 08/21/25 16:43 Respiratory Rate 16 08/21/25 16:17 Blood Pressure 131/72 08/21/25 16:17 Pulse Oximetry 95 08/21/25 16:43 Oxygen Delivery Me thod Room Air 08/21/25 16:43 MDM - Trauma Medical Decision Making Medical decision making Patient's reason for coming to the emergency room: Social determinants: Patient is employed here at the hospital. I reviewed the patient's medical record. Patient last followed up with her PCP for GERD last month. I reviewed the patient's current home meds Patient takes no chronic medications. Alternate historians: None Differential diagnosis: Would have concern for rib fracture, rib contusion, pneumothorax. Chest x-ray was ordered. Chest x-ray: No acute process. No infiltrate. No pneumothorax. This was reviewed and interpreted by myself the emergency room physician. I also reviewed the radiology report. Assessment and plan: Rib pain - Discharged home - Discussed plan with patient. Answered any questions. - Evaluation and treatment of this problem were appropriate in the emergency setting. Lab Data Radiology Impressions Ribs X-Ray 08/21/25 16:35 IMPRESSION: No acute findings. All radiology interpretation(s) finalized by discharge Discharge Plan Discharge Patient Disposition: Home Clinical Impression: Rib pain Condition: Stable Prescriptions: No Action multivitamin Tablet 1 tab PO DAILY cholecalciferol (vitamin D3) 1,250 mcg (50,000 unit) capsule 50,000 unit PO DAILY Qty: 12 1RF methylprednisolone [Medrol ([place])] 4 mg tablets,dose pack See Rx Instructions PO PER PKG DIR Qty: 21 0RF Rx Instructions: PO PER PKG DIR for 6 days albuterol sulfate [ProAir HFA] 90 mcg/actuation HFA aerosol inhaler 1 inh inhalation Q6H PRN (Reason: shortness of breath or wheezing) 30 Days Qty: 8.5 1RF cephalexin 500 mg capsule 500 mg PO TID 7 Days Qty: 21 0RF pantoprazole 40 mg tablet,delayed release (DR/EC) See Rx Instructions .ROUTE .COMPLEX Qty: 90 3RF Dose Instruction: TAKE 1 TABLET BY MOUTH DAILY Rx Instructions: TAKE 1 TABLET BY MOUTH DAILY Acidophilus Capsule 10 mg PO DAILY magnesium glycinate 100 mg magnesium capsule 325 mg PO DAILY Discharge Orders: Discharge ED (Routine); Ordered 08/21/25 Ordered By: Cynthia Mas Referrals: MARGARETTE Ramirez, INDUSTRIAL PHOTOGRAPHER [Primary Care Provider, Family Practice] Discharge Diet: Usual diet Discharge Activity: Increase activity as tolerated Patient Instructions: Chest Wall Pain (ED), Opioid Safety, Pain Management, Patient Portal & Suri Instructions Activity Restrictions/Additional Instructions: Thank you for choosing [email or web address] for your healthcare needs today. You have been screened and evaluated and felt safe for discharge. Health conditions do change or evolve sometimes and as such it is important that you follow up with your Primary Doctor to be re checked, 3-5 days is a general good time frame for follow up. You are always welcome to return to the ED for re assessment if your symptoms are worsening or you have new concerns. (Please note that included in your discharge packet is information concerning opioid safety and pain management. This information is given to all patients who are discharged from the ER regardless of their discharge diagnosis or the medicines they usually take or are prescribed.) Print Language: Armenian Coding Level of Care Code ED Nurse Office for Sandro Roca
[2025-08-21 16:43] VITALS: PULSE 90; O2SAT 95
== END 2025-08-21 17:25 | disposition home or self-care (01) ==
PROVIDERS: Emergency Provider Emergency Medicine; PCP Nurse Practitioner Family
DX: R07.89 Other chest pain (principal)
CPT/HCPCS: 71100; 99283

== ENCOUNTER 2025-08-28 12:20 | Outpatient (CLI) | payer OTHER, SELFPAY ==
--- NOTE | 2025-08-28 12:36 | XRR_ITS ---
PROCEDURE INFORMATION: Exam: XR Chest Exam date and time: 08/28/2025 12:42 PM Age: 60 years old Clinical indication: Dyspnea; Additional info: Continued pain/dyspnea left pleura TECHNIQUE: Imaging protocol: Radiologic exam of the chest. Views: 2 views. COMPARISON: CR XR chest 2V* [id number] 06/06/2020 10:16 AM FINDINGS: Lungs: Unremarkable. No consolidation. Pleural spaces: Unremarkable. No pleural effusion. No pneumothorax. Heart/Mediastinum: Unremarkable. No cardiomegaly. Bones/joints: Unremarkable. Organs: Cholecystectomy clips are defined in the right upper quadrant. XR/XR chest 2V* [id number] IMPRESSION: No acute process
== END 2025-08-28 12:21 | disposition home or self-care (01) ==
PROVIDERS: PCP Nurse Practitioner Family; Visit Provider Family Medicine
DX: S29.9XXA Unspecified injury of thorax, initial encounter (principal); X58.XXXA Exposure to other specified factors, initial encounter
CPT/HCPCS: 71046